=== PATIENT | female | born 1990 | race Hispanic/Latino ===

== ENCOUNTER 2024-01-30 08:43 | Day surgery (SDC) | payer OTHER ==
[2024-01-28 09:52] LABS: Anion Gap 7.3 mEq/L (5.0-15.0); Potassium 4.3 mEq/L (3.5-5.1)
--- NOTE | 2024-01-29 14:17 | EKG ---
Test Date: 2024-01-28 Test Time: 10:25:43 Lna: SHAWN MEASUREMENT RESULTS: Intervals: Rate: 67 NH: 132 QRSD: 80 QT: 376 QTc: 397 Wheelwright: P: 40 NH: 132 QRS: 62 T: 62 INTERPRETIVE STATEMENTS: Normal sinus rhythm Normal ECG No previous ECG available for comparison Electronically Signed On 01-29-24 14:13:26 [employer]OU[employer]ICAL [employer]ESS OPERATOR by Marcin Farfan
[2024-01-30] MEDS: Ringers Lactate 1,000 ML IV ONE (09:05)
[2024-01-30] MEDS ORDERED: FENTANYL CITR 100 MCG/2 ML ONE (09:25)
[2024-01-30] MEDS ORDERED: propofoL 200 MG/20 ML VIAL IV ONE (09:25)
[2024-01-30] MEDS ORDERED: LIDOCAINE 1% MPF 5 ML VIAL ONE (09:25)
[2024-01-30] MEDS ORDERED: ROCURONIUM 50 MG/5 ML VIAL IV ONE (09:25)
[2024-01-30] MEDS ORDERED: MIDAZOLAM HCL 2 MG/2 ML INJ ONE (09:25)
[2024-01-30] MEDS: CEFOXITIN SODIUM 2 GM/VIAL ONE (09:31)
[2024-01-30] MEDS ORDERED: dexAMETHasone 4 MG/ML VIAL ONE (09:46)
[2024-01-30] MEDS ORDERED: ONDANSETRON 4 MG/2 ML VIAL ONE (09:46)
[2024-01-30] MEDS ORDERED: KETOROLAC 30 MG/ML INJ ONE (09:46)
[2024-01-30] MEDS: BUPIVACAINE 0.25% PF 30 ML VIAL ONE (09:50)
[2024-01-30] MEDS ORDERED: SUGAMMADEX SODIUM 200 MG/2 ML VIAL IV ONE (10:39)
--- NOTE | 2024-01-30 10:47 | P.OP ---
Preoperative diagnosis: Ventral Incisional Hernias Postoperative diagnosis: Ventral Incisional Hernias Primary procedure: Laparoscopic Ventral Incisional Hernia Repair with Mesh Anesthesia: GETA + Local Estimated blood loss: <5cc Specimen: none Findings: Incisional Ventral Hernia ~ 9cm Complications: None Implants: Bard Ventralite ST 15x 20cm, Sorbafix x 75 Transferred to: Recovery Room Condition: Good
[2024-01-30] MEDS: HYDROMORPHONE HCL 1 MG/ML INJ ONE (11:24)
[2024-01-30] MEDS: ONDANSETRON 4 MG/2 ML VIAL ONE (11:31)
[2024-01-30] MEDS: PROMETHAZINE INJ 25 MG/ML AMP ONE (11:49)
[2024-01-30] MEDS: HYDROCODONE/APAP 7.5/325 MG TAB ONE (13:08)
[2024-01-30 14:03] VITALS: BP 144/84; TEMP 97.1; O2SAT 100
--- NOTE | 2024-01-30 21:27 | OP ---
Date of Procedure: 01/30/2024 Surgeon: Leobardo Broussard MD, Preoperative Diagnosis: Ventral incisional hernia. Postoperative Diagnosis: Ventral incisional hernia. Procedure Performed: Laparoscopic ventral incisional hernia repair with mesh. Anesthesia: General endotracheal with 0.25% Marcaine. Estimated Blood Loss: 5 cc. Specimen: None. Findings: Incisional ventral hernia approximately 9 cm in size. Complications: None. Implants: Bard Ventralight ST mesh with Echo positioning System approximately 15 cm x 20 cm mesh uti lized and SorbaFix absorbable fixation tacks x75. Patient was transferred to recovery room in good c ondition. Procedure In Detail: After informed consent was obtained, patient was brought to the operating room, prepped and draped in the usual sterile fashion. After adequate anesthesia was achieved, I made an incision on left upper quad down to subcutaneous tissues. A 5 mm 0-degree optical trocar was introdu jeremy in the abdomen without complication. Insufflation was obtained to 15 mmHg at this time. There w as no injury to vital structures upon entry into the abdomen. Additional trocar was placed in the le ft mid abdomen. This was similarly anesthetized, sharply incised, and a 12 mm trocar was placed unde r direct visualization without incident or complication. At this point, I proceeded to use the LigaS ure device to take the omental attachments and incarcerated adipose tissue from an incisional hernia in the pelvic region where it appears that a previous been performed. The adipose was inca rcerated at this area requiring the LigaSure to remove it from the abdominal wall. The posterior rec tus sheath was missing in this area and we could see exposed rectus abdominis muscles in the midline. There was also an umbilical hernia, which had contained adipose tissue, preperitoneal fat, which wa s removed and brought out through the lateral trocar. At this point, I sized the mesh appropriately and found there to be multiple small defects consistent with approximately 9 cm total area predominan tly in the midline of hernia defect in a Dutch cheese type appearance. At this point, I deployed a 2 0 x 15 cm Bard Ventralight mesh with echo positioning system in the long axis with 20 cm in the long axis and 15 cm in the lateral access. I secured it to the anterior abdominal bowel wall using a sing le crown of SorbaFix absorbable fixation tacks and removed the balloon deployment system. It was fou nd to be intact on the back table. I then placed a total of 75 screws to the anterior abdominal wall in a double crown type orientation with good approximation of the mesh to the abdominal wall. At th is point, I then closed the 12 mm trocar site using a Jason suture passer with 0 Vicryl int errupted fashion with good approximation of tissues. The abdomen was completely desufflated under di rect visualization without evidence of complication. All trocars were removed under direct visualiza tion. All skin edges were then copiously irrigated and closed with a 4-0 Monocryl in a running fashi on. Dermabond was placed over top. Patient tolerated the procedure without incident or complication , transferred to PACU in good condition, all counts were correct at the end of the case. JOVON/TENISHA Voice ID: [id number] Report ID: [id number]
== END 2024-01-30 13:35 | disposition home or self-care (01) ==
LOC: OR 08:43
PROVIDERS: ATTEND Surgery
PROC: 0WUF4JZ Supplement Abdominal Wall with Synthetic Substitute, Percutaneous Endoscopic Approach (ICD-10-PCS; principal; 2024-01-30 10:15)
DX: K43.2 Incisional hernia without obstruction or gangrene (principal)
CPT/HCPCS: 93005; 80048; 36415; 81025; 49593; J2550; J2704; J1100; J2001; J2250; J3010; J1170; J0694; J2405 ×2; J7120